=== PATIENT | female | born 1940 | race Two or more races ===

== ENCOUNTER 2018-06-28 17:57 | Outpatient (CLI) | payer OTHER | END 2018-06-28 18:20 | disposition home or self-care (01) | LOC: LAB 17:57 | DX: N30.00 Acute cystitis without hematuria (principal) ==

== ENCOUNTER 2018-08-23 13:29 | Outpatient (CLI) | payer OTHER | END 2018-08-23 13:40 | disposition home or self-care (01) | LOC: MRI 13:29 | DX: M17.0 Bilateral primary osteoarthritis of knee (principal); F03.90 Unspecified dementia, unspecified severity, without behavioral disturbance, psychotic disturbance, mood disturbance, and anxiety | CPT/HCPCS: 70551 ==

== ENCOUNTER 2019-09-18 14:51 | Outpatient (CLI) | payer OTHER | END 2019-09-18 15:00 | disposition home or self-care (01) | LOC: RAD 14:51 | DX: M17.0 Bilateral primary osteoarthritis of knee (principal); I11.9 Hypertensive heart disease without heart failure ==

== ENCOUNTER 2019-09-23 19:07 | Emergency (ER) | payer OTHER ==
[~2019-09-23] VITALS: Ht 162.6 cm; Wt 57.2 kg
[2019-09-23] MEDS ORDERED: SIMVASTATIN5 MG (19:42)
[2019-09-23] MEDS ORDERED: ALPRAZOLAM ODT0.5 MG (19:42)
== END 2019-09-23 21:05 | disposition home or self-care (01) ==
LOC: ER 19:07
DX: S90.872A Other superficial bite of left foot, initial encounter (principal); W55.01XA Bitten by cat, initial encounter; Y93.89 Activity, other specified; Y92.017 Garden or yard in single-family (private) house as the place of occurrence of the external cause; Y99.8 Other external cause status

== ENCOUNTER 2020-09-16 08:52 | Emergency (ER) | payer OTHER ==
[~2020-09-16] VITALS: Ht 162.6 cm; Wt 65.3 kg
[~2020-09-16 08:52] MED LIST: ALPRAZOLAM ODT0.5 MG; SIMVASTATIN5 MG
[2020-09-16] MEDS ORDERED: SINGULAIR10 MG (09:10)
[2020-09-16] MEDS ORDERED: KETO10TA2 PO (11:32)
== END 2020-09-16 11:39 | disposition home or self-care (01) ==
LOC: ER 08:52
DX: S70.02XA Contusion of left hip, initial encounter (principal); M54.5 Low back pain; W18.09XA Striking against other object with subsequent fall, initial encounter; Y93.K1 Activity, walking an animal; Y92.413 State road as the place of occurrence of the external cause; Y99.8 Other external cause status

== ENCOUNTER 2020-12-18 13:45 | Emergency (ER) | payer OTHER ==
[~2020-12-18] VITALS: Ht 162.6 cm; Wt 62.1 kg
[~2020-12-18 13:45] MED LIST changes: +KETO10TA2 PO; +SINGULAIR10 MG
== END 2020-12-18 16:54 | disposition home or self-care (01) ==
LOC: ER 13:45
DX: S81.852A Open bite, left lower leg, initial encounter (principal); W55.01XA Bitten by cat, initial encounter; Y93.89 Activity, other specified; Y92.89 Other specified places as the place of occurrence of the external cause; Y99.8 Other external cause status

== ENCOUNTER 2021-04-15 14:54 | Outpatient (CLI) | payer OTHER | END 2021-04-15 15:02 | disposition home or self-care (01) | LOC: RAD 14:54 | PROVIDERS: ATTEND Physical Medicine & Rehabilitation | DX: M17.12 Unilateral primary osteoarthritis, left knee (principal) ==

== ENCOUNTER 2021-08-14 15:26 | Emergency (ER) | payer OTHER ==
[~2021-08-14] VITALS: Ht 154.9 cm; Wt 60.3 kg
[2021-08-14] MEDS ORDERED: AMOX-CLAV 875-1 EAC1 PO (19:35)
== END 2021-08-14 19:59 | disposition home or self-care (01) ==
LOC: ER 15:26
DX: S81.822A Laceration with foreign body, left lower leg, initial encounter (principal); W55.01XA Bitten by cat, initial encounter; Y93.89 Activity, other specified; Y92.89 Other specified places as the place of occurrence of the external cause; Y99.8 Other external cause status

== ENCOUNTER 2022-02-02 14:51 | Outpatient (CLI) | payer OTHER ==
[~2022-02-02 14:51] MED LIST changes: +AMOX-CLAV 875-1 EAC1 PO
== END 2022-02-02 15:02 | disposition home or self-care (01) ==
LOC: RAD 14:51
PROVIDERS: ATTEND Physical Medicine & Rehabilitation
DX: M54.50 Low back pain, unspecified (principal); M84.350A Stress fracture, pelvis, initial encounter for fracture

== ENCOUNTER 2022-02-05 12:06 | Outpatient (CLI) | payer OTHER | END 2022-02-05 12:43 | disposition home or self-care (01) | LOC: MRI 12:06 | PROVIDERS: ATTEND Physical Medicine & Rehabilitation | DX: M54.50 Low back pain, unspecified (principal); M84.350A Stress fracture, pelvis, initial encounter for fracture | CPT/HCPCS: 72148 ==

== ENCOUNTER 2023-02-24 11:00 | Emergency (ER) | payer OTHER ==
[~2023-02-24] VITALS: Ht 162.6 cm; Wt 56.7 kg
== END 2023-02-24 22:23 | disposition home or self-care (01) ==
LOC: ER 11:00
DX: S42.291A Other displaced fracture of upper end of right humerus, initial encounter for closed fracture (principal); S00.83XA Contusion of other part of head, initial encounter; W18.39XA Other fall on same level, initial encounter; Y93.89 Activity, other specified; Y92.018 Other place in single-family (private) house as the place of occurrence of the external cause; S40.011A Contusion of right shoulder, initial encounter; Z88.2 Allergy status to sulfonamides; E78.00 Pure hypercholesterolemia, unspecified; I10 Essential (primary) hypertension
CPT/HCPCS: 36415; 70450; 70490; 73030; 73060; 96365; 99284; J1100

== ENCOUNTER → 2023-04-14 | Outpatient (CLI) | payer OTHER | END | disposition home or self-care (01) | LOC: MRI 10:46 | PROVIDERS: ATTEND Obstetrics & Gynecology Maternal & Fetal Medicine | DX: I63.9 Cerebral infarction, unspecified (principal) | CPT/HCPCS: 70553; Q9965; 70552 ==

== ENCOUNTER 2024-11-08 14:36 | Outpatient (CLI) | payer OTHER | END 2024-11-08 14:39 | disposition home or self-care (01) | LOC: MAMO-SONO 14:36 | PROVIDERS: ATTEND Internal Medicine | DX: N64.4 Mastodynia (principal); Z12.31 Encounter for screening mammogram for malignant neoplasm of breast ==

== ENCOUNTER 2024-11-22 13:37 | Outpatient (CLI) | payer OTHER | END 2024-11-22 13:38 | disposition home or self-care (01) | LOC: NUCLEAR 13:37 | PROVIDERS: ATTEND Internal Medicine | DX: M81.0 Age-related osteoporosis without current pathological fracture (principal) ==

== ENCOUNTER 2025-01-12 14:18 | Outpatient (CLI) | payer OTHER | END 2025-01-12 14:34 | disposition home or self-care (01) | LOC: TOM 14:18 | PROVIDERS: ATTEND Internal Medicine Cardiovascular Disease | DX: G91.9 Hydrocephalus, unspecified (principal) ==